=== PATIENT | male | born 1970 | race Caucasian/White ===

== ENCOUNTER → 2024-09-12 08:35 | Outpatient (REF) | payer BC, SELFPAY ==
[2024-09-12 12:32] LABS: Hematocrit 41.6 % (39.0-52.0); Hemoglobin 13.6 g/dL (13.0-18.0); Mean Corp Hgb Conc. 32.7 g/dL (33.0-37.0); Mean Corpuscular Hgb 28.5 pg (27.0-31.0); Mean Platelet Volume 10.3 fL (7.4-10.4); Platelet Count 260 10^3/uL (130-400); Red Blood Cell Count 4.78 10^6/uL (4.70-6.10); Red Cell Dist. Width 12.7 % (11.5-14.5); White Blood Cell Count 5.6 10^3/uL (4.8-10.8)
[2024-09-12 12:34] LABS: ALT (SGPT) 26 U/L (0-50); AST (SGOT) 28 U/L (17-59); Albumin 4.4 g/dl (3.5-5.0); Alkaline Phosphatase 69 U/L (38-126); Blood Urea Nitrogen 14 mg/dl (9-20); Calcium 9.1 mg/dl (8.4-10.2); Carbon Dioxide 26 mmol/L (22-30); Chloride 103 mmol/L (98-107); Glucose 95 mg/dl (70-99); HDL Cholesterol 43 mg/dl; LDL Cholesterol, Calculated 134 mg/dl; Potassium 4.3 mmol/L (3.5-5.1); Sodium 139 mmol/L (135-145); Total Bilirubin 0.2 mg/dl (0.2-1.3); Total Cholesterol 206 mg/dl (50-199); Total Protein 6.7 g/dl (6.3-8.2); Triglyceride 148 mg/dl (10-149); Very Low Density Lipoprotein 29 mg/dl (0-30); eGFR > 60.00
[2024-09-12 13:06] LABS: PSA, Total - Screen 0.86 ng/ml (0.0-4.0); TSH 0.83 uIU/ml (0.47-4.68)
== END ==
LOC: HWLAB 08:35
PROVIDERS: ATTENDING PHYSICIAN Family Medicine
DX: Z00.00 Encounter for general adult medical examination without abnormal findings (principal); E03.9 Hypothyroidism, unspecified; F41.9 Anxiety disorder, unspecified; F33.0 Major depressive disorder, recurrent, mild
CPT/HCPCS: 36415; 80053; 80061; 84443; 85027; G0103

== ENCOUNTER → 2025-10-09 08:32 | Outpatient (REF) | payer BC, SELFPAY ==
[2025-10-09 10:23] LABS: Hematocrit 42.9 % (39.0-52.0); Hemoglobin 14.1 g/dL (13.0-18.0); Mean Corp Hgb Conc. 32.9 g/dL (33.0-37.0); Mean Corpuscular Volume 85.8 fL (80.0-94.0); Platelet Count 296 10^3/uL (130-400); Red Cell Dist. Width 12.5 % (11.5-14.5)
[2025-10-09 11:57] LABS: ALT (SGPT) 25 U/L (0-50); AST (SGOT) 28 U/L (17-59); Albumin 4.7 g/dl (3.5-5.0); Alkaline Phosphatase 73 U/L (38-126); Calcium 9.4 mg/dl (8.4-10.2); Carbon Dioxide 24 mmol/L (22-30); Chloride 101 mmol/L (98-107); Glucose 97 mg/dl (70-99); HDL Cholesterol 51 mg/dl; LDL Cholesterol, Calculated 151 mg/dl; Potassium 4.5 mmol/L (3.5-5.1); Sodium 136 mmol/L (135-145); Total Protein 7.3 g/dl (6.3-8.2); Very Low Density Lipoprotein 35 mg/dl (0-30); eGFR > 60.00
[2025-10-09 12:07] LABS: Blood Urea Nitrogen 13 mg/dl (9-20)
[2025-10-09 12:08] LABS: PSA, Total - Screen 0.92 ng/ml (0.0-4.0); TSH 2.49 uIU/ml (0.47-4.68)
== END ==
LOC: REG 08:32
PROVIDERS: ATTENDING PHYSICIAN Family Medicine
DX: Z00.00 Encounter for general adult medical examination without abnormal findings (principal); F41.9 Anxiety disorder, unspecified; F33.0 Major depressive disorder, recurrent, mild; E03.9 Hypothyroidism, unspecified; R06.83 Snoring
CPT/HCPCS: 36415; 80053; 80061; 84443; 85027; G0103